=== PATIENT | male | born 1955 | race Caucasian/White ===

== ENCOUNTER 2018-02-23 16:40 | Emergency (ER) | payer OTHER ==
[~2018-02-23] VITALS: Ht 198.1 cm; Wt 95.1 kg
[~2018-02-23 16:40] MED LIST: CELE200C PO; PRAV10TA2 PO; TAMS-11 PO; ZOLP10TA PO; toradol IM
[2018-02-23 16:50] VITALS: BP 124/85
[2018-02-23] MEDS ORDERED: BACITRACIN ZINC OINT 500U/GM, 0.9 GM ONE (17:12)
[2018-02-23] MEDS ORDERED: DIPH,PERTUSS(ACELL),TET VAC/PF 0.5 ML IM-VACC ONE (17:40)
[2018-02-23] MEDS ORDERED: DIPH,PERTUSS(ACELL),TET VAC/PF NC IM-VACC ONE (18:00)
== END 2018-02-23 18:06 | disposition home or self-care (01) ==
LOC: ED 17:45
DX: S60.470A Other superficial bite of right index finger, initial encounter (principal); W54.0XXA Bitten by dog, initial encounter; Y93.89 Activity, other specified; Y92.410 Unspecified street and highway as the place of occurrence of the external cause; Y99.8 Other external cause status
CPT/HCPCS: 90471; 90715

== ENCOUNTER 2019-12-12 17:02 | Emergency (ER) | payer MEDICARE, OTHER ==
[~2019-12-12] VITALS: Ht 198.1 cm; Wt 96.4 kg
--- NOTE | 2019-12-12 17:15 | NUR ---
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 PT ANXIOUS IN TRIAGE, STATING "I NEED TO PEE RIGHT NOW, I CAN'T WAIT." UNABLE TO COMPLETE PT VITALS OR EKG, PT TAKEN TO BATHROOM. WILL FINISH VITALS AND EKG IN ROOM.
[2019-12-12 17:55] LABS: MEAN CORPUSCULAR HGB CONC 33.2 g/dL (33.2-36.2); MEAN CORPUSCULAR VOLUME 87.4 fL (81-97); MEAN PLATELET VOLUME 6.7 fL (7.4-10.4); PLATELET COUNT 171 x10^3/uL (130-400); RED BLOOD COUNT 5.85 x10^6/uL (4.38-5.82); RED CELL DISTRIBUTION WIDTH 13.4 % (9.4-14.8)
[2019-12-12 18:06] LABS: ALANINE AMINOTRANSFERASE 36 U/L (12-78); ALBUMIN 3.7 g/dL (3.4-5.0); ANION GAP 5 mmol/L (5-15); C-REACTIVE PROTEIN, QUANT 0.75 mg/dL (0.02-0.49); CALCIUM 8.3 mg/dL (8.5-10.1); CHLORIDE 107 mmol/L (98-107); CREATININE 1.39 mg/dL (0.7-1.3)
[2019-12-12 18:08] LABS: ALKALINE PHOSPHATASE 80 U/L (45-117); BILIRUBIN,TOTAL 0.7 mg/dL (0.2-1.0); TOTAL PROTEIN 6.9 g/dL (6.4-8.2)
[2019-12-12 18:11] LABS: BASOPHILS % (AUTO) 0 % (0-1); EOSINOPHILS # (AUTO) 0.04 x10^3/uL (0-0.4); EOSINOPHILS % (AUTO) 0 % (1-7); LYMPHOCYTES # (AUTO) 0.24 x10^3/uL (1-3.4); LYMPHOCYTES % (AUTO) 2 % (22-44); MD SCAN; MONOCYTES # (AUTO) 0.15 x10^3/uL (0.2-0.8); MONOCYTES % (AUTO) 1 % (2-9); NEUTROPHILS # (AUTO) 10.29 x10^3/uL (1.8-6.8); NEUTROPHILS % (AUTO) 96 % (42-75)
[2019-12-12 18:23] LABS: MICROSCOPIC NOT IND
[2019-12-12 18:39] VITALS: BP 122/73
== END 2019-12-12 19:12 | disposition home or self-care (01) ==
LOC: ED 19:00
DX: R50.9 Fever, unspecified (principal); Z20.828 Contact with and (suspected) exposure to other viral communicable diseases; R53.1 Weakness; R94.31 Abnormal electrocardiogram [ECG] [EKG]
CPT/HCPCS: 36415; 80053; 81003; 85025; 86140; 93005; 99284; U0001

== ENCOUNTER 2020-11-15 18:15 | Emergency (ER) | payer MEDICARE, OTHER ==
[~2020-11-15] VITALS: Ht 198.1 cm; Wt 98.5 kg
--- NOTE | 2020-11-15 18:25 | NUR ---
RN and PA assessment completed at this time.
[2020-11-15] MEDS ORDERED: ROSU20TA2 PO (18:38)
--- NOTE | 2020-11-15 18:50 | NUR ---
Report given to CATHY Kapadia and care transferred.
[2020-11-15] MEDS ORDERED: LIDOCAINE-MPF 1%, 5ML INFIL ONE (19:00)
[2020-11-15 19:20] VITALS: BP 122/78
--- NOTE | 2020-11-15 19:20 | NUR ---
patient wound dressed with bandaid, and abx cream. discharge instructions and s/s infection reviewed. shows understanding
[2020-11-15] MEDS ORDERED: NEOSPORIN OINT. PKT 1 PACKET ONE (19:21)
== END 2020-11-15 19:27 | disposition home or self-care (01) ==
LOC: ED 18:51
DX: S61.216A Laceration without foreign body of right little finger without damage to nail, initial encounter (principal); W26.0XXA Contact with knife, initial encounter; Y93.89 Activity, other specified; Y92.000 Kitchen of unspecified non-institutional (private) residence as the place of occurrence of the external cause; Y99.8 Other external cause status
CPT/HCPCS: 12041; 99284